=== PATIENT | female | born 1975 | race American Indian/Alaskan Native ===

== ENCOUNTER 2017-03-29 14:36 | Emergency (ER) | payer MEDICAID ==
[2017-03-29 14:42] VITALS: BP 131/79
[2017-03-29] MEDS ORDERED: Ketorolac 30 MG/ML SDV IM ONE (15:02)
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
== END 2017-03-29 15:26 | disposition home or self-care (01) ==
LOC: DL.ED 14:36
DX: M77.9 Enthesopathy, unspecified (principal); F17.210 Nicotine dependence, cigarettes, uncomplicated; Z88.5 Allergy status to narcotic agent; Z79.899 Other long term (current) drug therapy; Z90.49 Acquired absence of other specified parts of digestive tract
CPT/HCPCS: 96372; 99283; J1885

== ENCOUNTER 2020-02-14 09:50 | Emergency (ER) | payer BC ==
[2020-02-14 10:42] VITALS: BP 122/70; PULSE 81
[2020-02-14] MEDS ORDERED: Fluconazole 100 MG Tab PO ONE (11:22)
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
== END 2020-02-14 11:38 | disposition home or self-care (01) ==
LOC: DL.ED 09:50
DX: B37.0 Candidal stomatitis (principal); Z20.828 Contact with and (suspected) exposure to other viral communicable diseases; Z88.5 Allergy status to narcotic agent; Z88.8 Allergy status to other drugs, medicaments and biological substances; Z79.899 Other long term (current) drug therapy
CPT/HCPCS: 87081; 87430; 87635; 87804; 99283; A9270; U0002

== ENCOUNTER 2020-06-18 15:32 | Emergency (ER) | payer BC, MEDICAID ==
[2020-06-18 16:27] VITALS: BP 117/74; PULSE 91
== END 2020-06-18 17:32 | disposition left against medical advice (07) ==
LOC: DL.ED 15:32
DX: Z53.21 Procedure and treatment not carried out due to patient leaving prior to being seen by health care provider (principal)

== ENCOUNTER 2021-03-29 15:36 | Emergency (ER) | payer MEDICAID ==
[2021-03-29 15:57] VITALS: BP 137/87; PULSE 71
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
[2021-03-29 16:33] LABS: CHLORIDE,CL 92 mmol/L (98-107); SODIUM,NA 131 mmol/L (136-145)
[2021-03-29 17:31] LABS: AMPHETAMINES,URINE NEGATIVE (NEGATIVE); BARBITURATES,URINE NEGATIVE (NEGATIVE); BENZODIAZEPINE,URINE NEGATIVE (NEGATIVE); MDMA (ECSTASY), URINE NEGATIVE (NEGATIVE); METHADONE,URINE NEGATIVE (NEGATIVE); METHAMPHETAMINES,URINE NEGATIVE (NEGATIVE); OPIATES,URINE NEGATIVE (NEGATIVE); OXYCODONE,URINE NEGATIVE (NEGATIVE); PHENCYCLIDINE,URINE NEGATIVE (NEGATIVE); TCA,URINE POSITIVE (NEGATIVE)
== END 2021-03-29 17:41 | disposition home or self-care (01) ==
LOC: DL.ED 15:36
DX: F32.9 Major depressive disorder, single episode, unspecified (principal); E87.6 Hypokalemia; E87.1 Hypo-osmolality and hyponatremia; Z88.5 Allergy status to narcotic agent; Z88.8 Allergy status to other drugs, medicaments and biological substances; Z79.899 Other long term (current) drug therapy
CPT/HCPCS: 36415; 80053; 80305-QW; 81001; 83735; 84703; 85025; 99284

== ENCOUNTER 2021-03-31 17:51 | Emergency (ER) | payer MEDICAID ==
[2021-03-31 17:51] VITALS: BP 119/86; PULSE 75
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
--- NOTE | 2021-03-31 18:18 | CT ---
PROCEDURE INFORMATION: Exam: CT Head Without Contrast Exam date and time: 03/31/2021 6:05 PM Age: 46 years old Clinical indication: Altered mental status/memory loss; Confusion or disorientation; Additional info: Altered mentation TECHNIQUE: Imaging protocol: Computed tomography of the head without contrast. Radiation optimization: All CT scans at this facility use at least one of these dose optimization techniques: automated exposure control; mA and/or kV adjustment per patient size (includes targeted exams where dose is matched to clinical indication); or iterative reconstruction. Other technique: STROKE PROTOCOL was implemented. COMPARISON: MR Brain wo Cont 11/23/2020 8:41 AM FINDINGS: Brain: No acute hemorrhage. Unremarkable white matter. No mass effect. 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 Paranasal sinuses: Visualized sinuses are unremarkable. No fluid levels. Mastoid air cells: Visualized mastoid air cells are well aerated. Bones/joints: Unremarkable. No acute fracture. Soft tissues: Unremarkable. IMPRESSION: No acute intracranial process. ASSESSMENT: ASPECTS ([place] Stroke Program Early CT Score) is 10.
[2021-03-31 18:36] LABS: AMPHETAMINES,URINE NEGATIVE (NEGATIVE); BARBITURATES,URINE NEGATIVE (NEGATIVE); BENZODIAZEPINE,URINE NEGATIVE (NEGATIVE); MDMA (ECSTASY), URINE NEGATIVE (NEGATIVE); METHADONE,URINE NEGATIVE (NEGATIVE); METHAMPHETAMINES,URINE NEGATIVE (NEGATIVE); OPIATES,URINE NEGATIVE (NEGATIVE); OXYCODONE,URINE NEGATIVE (NEGATIVE); PHENCYCLIDINE,URINE NEGATIVE (NEGATIVE); TCA,URINE POSITIVE (NEGATIVE)
[2021-03-31 18:40] LABS: CHLORIDE,CL 100 mmol/L (98-107); SODIUM,NA 140 mmol/L (136-145)
[2021-03-31 18:41] LABS: ACETAMINOPHEN 0 ug/mL (10-30 (Therapeutic))
== END 2021-03-31 19:17 | disposition other institution (70) ==
LOC: DL.ED 17:51
DX: R41.82 Altered mental status, unspecified (principal); Z88.5 Allergy status to narcotic agent; Z88.9 Allergy status to unspecified drugs, medicaments and biological substances; Z79.899 Other long term (current) drug therapy
CPT/HCPCS: 36415; 70450; 80053; 80143; 80179; 80305-QW; 80307; 81001; 82140; 82150; 83605; 83690; 83735; 84484; 85025; 87040; 93005; 93010; 99284; 99285-25

== ENCOUNTER 2022-07-11 06:53 | Day surgery (SDC) | payer MEDICAID ==
[~2022-07-11 06:53] MED LIST: Dextrose 5%-0.45% NaCl 1,000 ML IV SCH; Sodium Chloride 0.9% 10 ML Syringe FLUSH PRN; Sodium Chloride 0.9% 10 ML Syringe FLUSH SCH
[2022-07-11] MEDS ORDERED: Propofol 200 MG/20 ML SDV IV ONE (06:54)
[2022-07-11 11:39] VITALS: BP 147/84; PULSE 62
== END 2022-07-11 10:40 | disposition home or self-care (01) ==
LOC: DL.ENDO 06:53
PROVIDERS: ATTEND Internal Medicine Gastroenterology
DX: K62.5 Hemorrhage of anus and rectum (principal); E66.09 Other obesity due to excess calories; J44.9 Chronic obstructive pulmonary disease, unspecified; F41.1 Generalized anxiety disorder; F32.A Depression, unspecified; E03.9 Hypothyroidism, unspecified; G62.9 Polyneuropathy, unspecified; Z98.890 Other specified postprocedural states; Z90.49 Acquired absence of other specified parts of digestive tract; Z68.38 Body mass index [BMI] 38.0-38.9, adult; Z87.891 Personal history of nicotine dependence; Z79.899 Other long term (current) drug therapy; Z88.8 Allergy status to other drugs, medicaments and biological substances; Z88.6 Allergy status to analgesic agent; Z88.5 Allergy status to narcotic agent
CPT/HCPCS: 00812; 45378; J2704; J7042

== ENCOUNTER 2022-08-26 08:23 | Emergency (ER) | payer MEDICAID ==
[2022-08-26 08:36] VITALS: BP 150/94; PULSE 82
[2022-08-26] MEDS ORDERED: Sodium Chloride 0.9% 10 ML Syringe FLUSH PRN (08:43)
[2022-08-26] MEDS ORDERED: Ketorolac 30 MG/ML SDV IVPUSH ONE (08:43)
[2022-08-26] MEDS ORDERED: Iopamidol 612 MG/ML 100 ML Bottle IVPUSH ONE (09:00)
[2022-08-26 09:31] LABS: ANION GAP 9.6 mEq/L (7-13); CHLORIDE,CL 91 mmol/L (98-107); SODIUM,NA 125 mmol/L (136-145)
[2022-08-26 09:34] LABS: ESTIMATED GFR 106 mL/min (>=60)
== END 2022-08-26 10:33 | disposition home or self-care (01) ==
LOC: DL.ED 08:23
DX: K11.20 Sialoadenitis, unspecified (principal); J44.9 Chronic obstructive pulmonary disease, unspecified; E03.9 Hypothyroidism, unspecified; Z88.5 Allergy status to narcotic agent; Z88.8 Allergy status to other drugs, medicaments and biological substances; Z79.899 Other long term (current) drug therapy; Z87.891 Personal history of nicotine dependence
CPT/HCPCS: 36415; 70491; 80053; 85025; 86140; 87040; 96374; 99284; J1885; J3490; Q9967

== ENCOUNTER 2022-12-18 08:55 | Emergency (ER) | payer MEDICAID ==
[2022-12-18] MEDS ORDERED: Sodium Chloride 0.9% 10 ML Syringe FLUSH PRN (09:12)
[2022-12-18 09:22] LABS: BASOPHILS PERCENT AUTO 0.2 % (0.0-1.0); EOSINOPHILS PERCENT AUTO 0.6 % (1.0-3.0); HEMATOCRIT 37.6 % (37.0-47.0); HEMOGLOBIN 13.2 g/dL (12.0-16.0); LYMPHOCYTES PERCENT AUTO 5.3 % (20.5-50.1); MEAN CORPUSCULAR HEMOGLOBIN 30.3 pg (27.0-34.0); MEAN CORPUSCULAR HGB CONC 35.1 g/dL (33.0-35.0); MEAN CORPUSCULAR VOLUME 86.4 fL (80-100); MONOCYTES PERCENT AUTO 11.6 % (2-8); NEUTROPHILS PERCENT AUTO 82.3 % (42.2-75.2); PLATELET COUNT,PLT 204 10^3/uL (150-450); RED BLOOD CELL COUNT 4.35 10^6/uL (4.2-5.4); WHITE BLOOD CELL COUNT,WBC 10.2 10^3/uL (5.0-10.0)
[2022-12-18 09:44] LABS: ALBUMIN 3.2 g/dL (3.4-5.0); BILIRUBIN TOTAL 0.7 mg/dL (0.2-1.0); BUN/CREATININE RATIO 11.8 (No establ ref range); CALCIUM 8.5 mg/dL (8.5-10.1); CREATININE 0.85 mg/dL (0.55-1.02); EST CRCL DRUG DOSING (CG) 77.85 mL/min; PROTEIN TOTAL,TP 7.3 g/dL (6.4-8.2)
[2022-12-18 09:45] LABS: LACTIC ACID 0.7 mmol/L (0.4-2.0)
[2022-12-18 09:49] LABS: ANION GAP 13.6 mEq/L (7-13); POTASSIUM,K 2.6 mmol/L (3.5-5.1)
[2022-12-18] MEDS ORDERED: methylPREDNISolone Sodium Succinate 125 MG/2 ML SDV IVPUSH ONE (09:49)
[2022-12-18] MEDS ORDERED: Sodium Chloride 0.9% 1,000 ML IV ONE (09:49)
[2022-12-18] MEDS ORDERED: Albuterol/Ipratropium 3.0-0.5 MG/3 ML Neb Soln NEB ONE (09:50)
[2022-12-18 09:53] LABS: A/G RATIO 0.78
[2022-12-18 10:03] LABS: CORONAVIRUS COVID-19 NAA NEGATIVE (NEGATIVE); INFLUENZA A NAA NEGATIVE (NEGATIVE); INFLUENZA B NAA NEGATIVE (NEGATIVE); RESPIRATORY SYNCYTIAL VIR NAA NEGATIVE (NEGATIVE)
[2022-12-18] MEDS ORDERED: Ondansetron 4 MG/2 ML SDV IV ONE (10:05)
[2022-12-18] MEDS ORDERED: Potassium Chloride 10 MEQ Tab.ER PO ONE (10:05)
[2022-12-18] MEDS ORDERED: Potassium Chloride 20 MEQ in Premix Bag 1 BAG IV ONE (10:07)
[2022-12-18] MEDS ORDERED: Lidocaine 1% 5 ML VIAL IV ONE (10:08)
[2022-12-18] MEDS ORDERED: Iopamidol 755 Mg/ML 100 ML Bottle IVPUSH ONE (10:09)
[2022-12-18 11:01] LABS: APPEARANCE,URINE SLIGHTLY CLOUDY (CLEAR); BILIRUBIN,URINE NEGATIVE (NEGATIVE); COLOR,URINE YELLOW (YELLOW); GLUCOSE,URINE NEGATIVE (NEGATIVE); KETONES,URINE 15 (NEGATIVE); LEUKOCYTE ESTERASE,URINE SMALL (NEGATIVE); NITRITE,URINE POSITIVE (NEGATIVE); OCCULT BLOOD,URINE MODERATE (NEGATIVE); PROTEIN,URINE TRACE (NEGATIVE); UROBILINOGEN,URINE 0.2 mg/dL (0.2-1.0)
[2022-12-18 11:14] LABS: AMORPHOUS SEDIMENT,URINE MODERATE /HPF (NOT SEEN); BACTERIA,URINE MANY /HPF (0-FEW/HPF); EPITHELIAL CELLS,URINE MANY /HPF (NOT SEEN); HYALINE CASTS,URINE FEW; MUCUS,URINE FEW /LPF (NOT SEEN); WBC,URINE 50-75 /HPF (0-5/HPF)
[2022-12-18 11:15] LABS: GRANULAR CASTS,URINE FEW
[2022-12-18] MEDS ORDERED: cefTRIAXone 2 GM Vial IVPUSH ONE (11:48)
[2022-12-18 13:48] VITALS: BP 128/77; PULSE 84
== END 2022-12-18 13:42 | disposition home or self-care (01) ==
LOC: DL.ED 08:55
DX: J45.40 Moderate persistent asthma, uncomplicated (principal); N12 Tubulo-interstitial nephritis, not specified as acute or chronic; E87.6 Hypokalemia; I10 Essential (primary) hypertension; J44.9 Chronic obstructive pulmonary disease, unspecified; M19.90 Unspecified osteoarthritis, unspecified site; E03.9 Hypothyroidism, unspecified; Z88.8 Allergy status to other drugs, medicaments and biological substances; Z88.6 Allergy status to analgesic agent; Z88.5 Allergy status to narcotic agent; Z79.899 Other long term (current) drug therapy; Z20.822 Contact with and (suspected) exposure to COVID-19
CPT/HCPCS: 0241U; 36415; 71045; 71275; 80053; 81001; 83605; 84484; 85025; 85379; 87040; 87086; 87088; 87186; 93005; 94640; 96365; 96366; 96375; 99285; A9270; J0696; J2405; J2930; J3480; J7030; Q9967; J3490; J7620-GY

== ENCOUNTER 2023-05-29 14:05 | Emergency (ER) | payer SELFPAY ==
[2023-05-29 14:16] VITALS: BP 120/74; PULSE 91
== END 2023-05-29 15:08 | disposition home or self-care (01) ==
LOC: DL.ED 14:05
DX: G89.18 Other acute postprocedural pain (principal); M79.672 Pain in left foot; E03.9 Hypothyroidism, unspecified; I10 Essential (primary) hypertension; J44.9 Chronic obstructive pulmonary disease, unspecified; E66.9 Obesity, unspecified; Z68.41 Body mass index [BMI] 40.0-44.9, adult; Z98.890 Other specified postprocedural states; Z88.6 Allergy status to analgesic agent; Z88.8 Allergy status to other drugs, medicaments and biological substances; Z79.899 Other long term (current) drug therapy
CPT/HCPCS: 99284

== ENCOUNTER 2023-12-13 06:25 | Day surgery (SDC) | payer MEDICAID ==
[~2023-12-13 06:25] MED LIST changes: -Dextrose 5%-0.45% NaCl 1,000 ML IV SCH; +Midazolam 1 MG/ML 2 ML SDV ONE; -Sodium Chloride 0.9% 10 ML Syringe FLUSH PRN; -Sodium Chloride 0.9% 10 ML Syringe FLUSH SCH; +fentaNYL 100 MCG/2 ML SDV ONE
[2023-12-13] MEDS ORDERED: fentaNYL 100 MCG/2 ML SDV IV ONE (06:26)
[2023-12-13] MEDS ORDERED: Midazolam 1 MG/ML 2 ML SDV IV ONE (06:26)
[2023-12-13] MEDS: Dextrose 5%-0.45% NaCl 1,000 ML IV SCH (06:41)
[2023-12-13] MEDS: fentaNYL 100 MCG/2 ML SDV IV ONE ×2 (06:48→06:49)
[2023-12-13] MEDS: Midazolam 1 MG/ML 2 ML SDV IV ONE ×2 (06:49→06:50)
[2023-12-13 08:11] VITALS: PULSE 66
[2023-12-13 08:23] VITALS: BP 103/52
== END 2023-12-13 08:25 | disposition home or self-care (01) ==
LOC: DL.ENDO 06:25
PROVIDERS: ATTEND Internal Medicine Gastroenterology
DX: K31.89 Other diseases of stomach and duodenum (principal); K25.9 Gastric ulcer, unspecified as acute or chronic, without hemorrhage or perforation; J45.909 Unspecified asthma, uncomplicated; J44.9 Chronic obstructive pulmonary disease, unspecified; E03.9 Hypothyroidism, unspecified; F32.A Depression, unspecified; E66.09 Other obesity due to excess calories; Z68.41 Body mass index [BMI] 40.0-44.9, adult; F41.1 Generalized anxiety disorder
CPT/HCPCS: 87077; J2250; J3010; J7042

== ENCOUNTER 2024-01-24 10:18 | Emergency (ER) | payer MEDICAID ==
[2024-01-24 10:57] LABS: BASOPHILS PERCENT AUTO 0.8 % (0.0-1.0); EOSINOPHILS PERCENT AUTO 1.9 % (1.0-3.0); HEMATOCRIT 40.5 % (37.0-47.0); HEMOGLOBIN 14.4 g/dL (12.0-16.0); LYMPHOCYTES PERCENT AUTO 19.7 % (20.5-50.1); MEAN CORPUSCULAR HEMOGLOBIN 31.4 pg (27.0-34.0); MEAN CORPUSCULAR HGB CONC 35.6 g/dL (33.0-35.0); MEAN CORPUSCULAR VOLUME 88.4 fL (80-100); MONOCYTES PERCENT AUTO 7.6 % (2-8); PLATELET COUNT,PLT 293 10^3/uL (150-450); RED BLOOD CELL COUNT 4.58 10^6/uL (4.2-5.4); WHITE BLOOD CELL COUNT,WBC 5.3 10^3/uL (5.0-10.0)
[2024-01-24] MEDS: Aspirin 81 MG Tab.Chew PO ONE (11:04)
[2024-01-24 11:05] LABS: APPEARANCE,URINE CLEAR (CLEAR); BILIRUBIN,URINE NEGATIVE (NEGATIVE); COLOR,URINE YELLOW (YELLOW); GLUCOSE,URINE NEGATIVE (NEGATIVE); KETONES,URINE NEGATIVE (NEGATIVE); LEUKOCYTE ESTERASE,URINE NEGATIVE (NEGATIVE); NITRITE,URINE NEGATIVE (NEGATIVE); OCCULT BLOOD,URINE NEGATIVE (NEGATIVE); PH,URINE 7.5 (5.0-9.0); PROTEIN,URINE TRACE (NEGATIVE); UROBILINOGEN,URINE 0.2 mg/dL (0.2-1.0)
[2024-01-24 11:11] VITALS: BP 127/77; PULSE 70
[2024-01-24 11:14] LABS: PROTHROMBIN TIME 9.9 SEC (9.0-12.0)
[2024-01-24 11:15] LABS: BACTERIA,URINE FEW /HPF (0-FEW/HPF); EPITHELIAL CELLS,URINE MODERATE /HPF (NOT SEEN); RBC,URINE 0-5 /HPF (0-5); WBC,URINE 0-5 /HPF (0-5/HPF)
[2024-01-24 11:21] LABS: A/G RATIO 1.3; ALANINE AMINOTRANSFERASE,ALT 20 U/L (14-59); ALBUMIN 4.2 g/dL (3.4-5.0); ALKALINE PHOSPHATASE 106 U/L (46-116); ANION GAP 12.3 mEq/L (7-13); ASPARTATE AMNIOTRANSFERASE,AST 14 U/L (15-37); BILIRUBIN TOTAL 0.4 mg/dL (0.2-1.0); BLOOD UREA NITROGEN,BUN 11 mg/dL (7-18); BUN/CREATININE RATIO 13.6 (No establ ref range); CALCIUM 9.6 mg/dL (8.5-10.1); CARBON DIOXIDE,CO2 28 mmol/L (21-32); CHLORIDE,CL 93 mmol/L (98-107); CREATININE 0.81 mg/dL (0.55-1.02); GLUCOSE RANDOM 112 mg/dL (70-99); LIPASE 19 U/L (16-77); MAGNESIUM 2.1 mg/dL (1.8-2.4); POTASSIUM,K 4.3 mmol/L (3.5-5.1); PROTEIN TOTAL,TP 7.4 g/dL (6.4-8.2); SODIUM,NA 129 mmol/L (136-145)
[2024-01-24 11:22] LABS: ESTIMATED GFR 88 mL/min (>=60)
[2024-01-24] MEDS: cefTRIAXone 1 GM Vial IVPUSH ONE (11:39)
== END 2024-01-24 13:05 | disposition home or self-care (01) ==
LOC: DL.ED 10:18
DX: R07.89 Other chest pain (principal); N39.0 Urinary tract infection, site not specified; E87.1 Hypo-osmolality and hyponatremia; I10 Essential (primary) hypertension; J44.9 Chronic obstructive pulmonary disease, unspecified; E66.9 Obesity, unspecified; E03.9 Hypothyroidism, unspecified; Z88.8 Allergy status to other drugs, medicaments and biological substances; Z79.890 Hormone replacement therapy; Z79.899 Other long term (current) drug therapy; Z90.49 Acquired absence of other specified parts of digestive tract; Z90.710 Acquired absence of both cervix and uterus
CPT/HCPCS: 36415; 71045; 80053; 81001; 83690; 83735; 84484; 85025; 85379; 85610; 93005; 96374; 99285-25; A9270-GY; J0696

== ENCOUNTER 2024-02-24 15:54 | Observation (INO) | payer MEDICAID ==
[2024-02-24] MEDS: Iopamidol 612 MG/ML 100 ML Bottle IVPUSH ONE (16:24)
[2024-02-24] MEDS: Ketamine 500 mg/10 ML MDV IV ONE (16:45)
[2024-02-24] MEDS: Sodium Chloride 0.9% 1,000 ML IV ONE (17:00)
[2024-02-24] MEDS: fentaNYL 100 MCG/2 ML SDV IVPUSH ONE (19:13)
[2024-02-24] MEDS: HYDROmorphone 1 MG/ML Syringe IVPUSH ONE (19:28)
[2024-02-24] MEDS ORDERED: Albuterol/Ipratropium 3.0-0.5 MG/3 ML Neb Soln NEB PRN (19:46)
[2024-02-24] MEDS ORDERED: Polyethylene Glycol 3350 Powder 17 GM Packet PO PRN (19:46)
[2024-02-24] MEDS ORDERED: Magnesium Hydroxide 400 MG/5 ML Susp 30 ML Cup PO PRN (19:46)
[2024-02-24] MEDS ORDERED: Bisacodyl 5 MG Tab PO PRN (19:46)
[2024-02-24] MEDS ORDERED: Naloxone 2 MG/2 ML Syringe IVPUSH PRN (20:15)
[2024-02-24] MEDS ORDERED: Promethazine 25 MG/ML SDV IM PRN (20:17)
[2024-02-24] MEDS: Docusate Sodium 100 MG Cap PO SCH (21:15)
[2024-02-24] MEDS: Ondansetron 4 MG/2 ML SDV IVPUSH PRN (21:36)
[2024-02-24] MEDS: oxyCODONE 5 MG Tab PO PRN (21:46)
[2024-02-24] MEDS: Temazepam 15 MG Cap PO PRN (21:47)
[2024-02-25] MEDS: Pantoprazole 40 MG Tab.CR PO SCH (06:09)
[2024-02-25 06:44] LABS: BASOPHILS PERCENT AUTO 0.9 % (0.0-1.0); EOSINOPHILS PERCENT AUTO 3.4 % (1.0-3.0); HEMATOCRIT 32.7 % (37.0-47.0); HEMOGLOBIN 10.8 g/dL (12.0-16.0); LYMPHOCYTES PERCENT AUTO 24.4 % (20.5-50.1); MONOCYTES PERCENT AUTO 7.7 % (2-8); NEUTROPHILS PERCENT AUTO 63.6 % (42.2-75.2); PLATELET COUNT,PLT 260 10^3/uL (150-450); RED BLOOD CELL COUNT 3.48 10^6/uL (4.2-5.4); WHITE BLOOD CELL COUNT,WBC 4.7 10^3/uL (5.0-10.0)
[2024-02-25 07:13] LABS: ALBUMIN 3.3 g/dL (3.4-5.0); ANION GAP 7.5 mEq/L (7-13); BILIRUBIN TOTAL 0.3 mg/dL (0.2-1.0); BUN/CREATININE RATIO 27.1 (No establ ref range); CALCIUM 8.5 mg/dL (8.5-10.1); CREATININE 0.7 mg/dL (0.55-1.02); EST CRCL DRUG DOSING (CG) 90.01 mL/min; MAGNESIUM 2.1 mg/dL (1.8-2.4); POTASSIUM,K 4.5 mmol/L (3.5-5.1); PROTEIN TOTAL,TP 6.1 g/dL (6.4-8.2)
[2024-02-25 07:15] LABS: A/G RATIO 1.18
[2024-02-25] MEDS: Ibuprofen 400 MG Tab PO PRN (14:06)
[2024-02-25] MEDS: fentaNYL 100 MCG/2 ML SDV IVPUSH PRN (14:08)
[2024-02-25] MEDS ORDERED: Docusate Sodium 100 MG Cap PO SCH (16:15)
[2024-02-25] MEDS: LORazepam 1 MG Tab PO PRN (16:28)
[2024-02-25] MEDS: Formoterol/Mometasone 100-5 MCG 8.8 GM Inhaler INH SCH (18:21)
[2024-02-25] MEDS: OXcarbazepine 300 MG Tab PO SCH (20:45)
[2024-02-25] MEDS: Magnesium Oxide 400 MG Tab PO SCH (20:45)
[2024-02-25] MEDS: Amitriptyline 25 MG Tab PO SCH (20:45)
[2024-02-25] MEDS: ORPHENADRINE 100 MG PO PRN (22:01)
[2024-02-26 06:38] LABS: BASOPHILS PERCENT AUTO 0.6 % (0.0-1.0); HEMATOCRIT 30.4 % (37.0-47.0); HEMOGLOBIN 10.2 g/dL (12.0-16.0); LYMPHOCYTES PERCENT AUTO 26.1 % (20.5-50.1); MEAN CORPUSCULAR HGB CONC 33.6 g/dL (33.0-35.0); MEAN CORPUSCULAR VOLUME 92.4 fL (80-100); MONOCYTES PERCENT AUTO 7.7 % (2-8); NEUTROPHILS PERCENT AUTO 62.6 % (42.2-75.2); PLATELET COUNT,PLT 247 10^3/uL (150-450); RED BLOOD CELL COUNT 3.29 10^6/uL (4.2-5.4); WHITE BLOOD CELL COUNT,WBC 4.9 10^3/uL (5.0-10.0)
[2024-02-26] MEDS ORDERED: Flumazenil 0.1 MG/ML 5 ML MDV IVPUSH PRN (06:47)
[2024-02-26 07:02] LABS: ALBUMIN 3.3 g/dL (3.4-5.0); ANION GAP 10.1 mEq/L (7-13); BILIRUBIN TOTAL 0.3 mg/dL (0.2-1.0); BUN/CREATININE RATIO 21.5 (No establ ref range); CALCIUM 8.5 mg/dL (8.5-10.1); CREATININE 0.65 mg/dL (0.55-1.02); EST CRCL DRUG DOSING (CG) 96.93 mL/min; MAGNESIUM 2.2 mg/dL (1.8-2.4); POTASSIUM,K 4.1 mmol/L (3.5-5.1); PROTEIN TOTAL,TP 6.1 g/dL (6.4-8.2)
[2024-02-26 07:03] LABS: A/G RATIO 1.18
[2024-02-26] MEDS ORDERED: fentaNYL 100 MCG/2 ML SDV IVPUSH PRN (08:01)
[2024-02-26] MEDS: ESTRADIOL 1 MG PO SCH (08:48)
[2024-02-26] MEDS: Lidocaine 5% 700 MG Patch TOP SCH (08:51)
[2024-02-26] MEDS: fentaNYL 100 MCG/2 ML SDV IVPUSH PRN (08:51)
[2024-02-26] MEDS: Hydrochlorothiazide 25 MG Tab PO SCH (08:52)
[2024-02-26] MEDS: Loratadine 10 MG Tab PO SCH (08:52)
[2024-02-26] MEDS: Venlafaxine 150 MG Cap.ER PO SCH (08:53)
[2024-02-26] MEDS: Levothyroxine 75 MCG Tab PO SCH (08:53)
[2024-02-27 06:53] LABS: BASOPHILS PERCENT AUTO 0.5 % (0.0-1.0); EOSINOPHILS PERCENT AUTO 3.7 % (1.0-3.0); HEMATOCRIT 29.5 % (37.0-47.0); MEAN CORPUSCULAR HGB CONC 33.9 g/dL (33.0-35.0); MEAN CORPUSCULAR VOLUME 91.3 fL (80-100); MONOCYTES PERCENT AUTO 8.3 % (2-8); NEUTROPHILS PERCENT AUTO 62.5 % (42.2-75.2); PLATELET COUNT,PLT 234 10^3/uL (150-450); RED BLOOD CELL COUNT 3.23 10^6/uL (4.2-5.4); WHITE BLOOD CELL COUNT,WBC 4.4 10^3/uL (5.0-10.0)
[2024-02-27 07:14] LABS: ALBUMIN 3.2 g/dL (3.4-5.0); ANION GAP 10.8 mEq/L (7-13); BILIRUBIN TOTAL 0.4 mg/dL (0.2-1.0); BUN/CREATININE RATIO 21.7 (No establ ref range); CALCIUM 8.3 mg/dL (8.5-10.1); CREATININE 0.6 mg/dL (0.55-1.02); EST CRCL DRUG DOSING (CG) 105.01 mL/min; MAGNESIUM 2.2 mg/dL (1.8-2.4); POTASSIUM,K 3.8 mmol/L (3.5-5.1); PROTEIN TOTAL,TP 6.1 g/dL (6.4-8.2)
[2024-02-27 07:15] LABS: A/G RATIO 1.1
[2024-02-27] MEDS: diphenhydrAMINE 50 MG/ML SDV IVPUSH PRN (12:15)
[2024-02-27 14:08] VITALS: BP 115/62; PULSE 83
== END 2024-02-27 14:53 | disposition home or self-care (01) ==
LOC: DL.ED 15:54 → DL.MS 19:09
PROVIDERS: ADMIT Internal Medicine; ATTEND Internal Medicine
DX: S76.091A Other specified injury of muscle, fascia and tendon of right hip, initial encounter (principal); S70.01XA Contusion of right hip, initial encounter; G89.29 Other chronic pain; M16.11 Unilateral primary osteoarthritis, right hip; E66.9 Obesity, unspecified; T79.6XXA Traumatic ischemia of muscle, initial encounter; G61.81 Chronic inflammatory demyelinating polyneuritis; I10 Essential (primary) hypertension; J44.9 Chronic obstructive pulmonary disease, unspecified; E03.9 Hypothyroidism, unspecified; Z79.890 Hormone replacement therapy; Z79.899 Other long term (current) drug therapy; Z68.41 Body mass index [BMI] 40.0-44.9, adult; W19.XXXA Unspecified fall, initial encounter
CPT/HCPCS: 36415; 51702; 73701; 73718-RT; 80053; 82306; 82550; 83735; 85025; 94640; 96374; 96375; 97166-GO; 97530-GO; 99232; 99233; 99238; 99284; 99284-25; A9270-GY; J1170; J1200; J2405; J3010; J3360; J3490; J7030; Q9967

== ENCOUNTER 2024-04-25 18:52 | Emergency (ER) | payer MEDICAID ==
[2024-04-25 19:08] VITALS: BP 148/100; PULSE 90
[2024-04-25 20:45] LABS: BASOPHILS PERCENT AUTO 0.4 % (0.0-1.0); EOSINOPHILS PERCENT AUTO 0.4 % (1.0-3.0); HEMATOCRIT 38.3 % (37.0-47.0); HEMOGLOBIN 13.4 g/dL (12.0-16.0); LYMPHOCYTES PERCENT AUTO 15.1 % (20.5-50.1); MEAN CORPUSCULAR HEMOGLOBIN 31.1 pg (27.0-34.0); MEAN CORPUSCULAR VOLUME 88.9 fL (80-100); MONOCYTES PERCENT AUTO 6.3 % (2-8); NEUTROPHILS PERCENT AUTO 77.8 % (42.2-75.2); PLATELET COUNT,PLT 295 10^3/uL (150-450); RED BLOOD CELL COUNT 4.31 10^6/uL (4.2-5.4); WHITE BLOOD CELL COUNT,WBC 10.6 10^3/uL (5.0-10.0)
[2024-04-25 21:00] LABS: APPEARANCE,URINE SLIGHTLY CLOUDY (CLEAR); BILIRUBIN,URINE NEGATIVE (NEGATIVE); COLOR,URINE YELLOW (YELLOW); GLUCOSE,URINE NEGATIVE (NEGATIVE); KETONES,URINE TRACE (NEGATIVE); LEUKOCYTE ESTERASE,URINE TRACE (NEGATIVE); NITRITE,URINE NEGATIVE (NEGATIVE); OCCULT BLOOD,URINE TRACE-INTACT (NEGATIVE); PROTEIN,URINE NEGATIVE (NEGATIVE); UROBILINOGEN,URINE 0.2 mg/dL (0.2-1.0)
[2024-04-25 21:04] LABS: AMPHETAMINES,URINE NEGATIVE (NEGATIVE); BARBITURATES,URINE NEGATIVE (NEGATIVE); BENZODIAZEPINE,URINE POSITIVE (NEGATIVE); MDMA (ECSTASY), URINE NEGATIVE (NEGATIVE); METHADONE,URINE NEGATIVE (NEGATIVE); METHAMPHETAMINES,URINE NEGATIVE (NEGATIVE); OPIATES,URINE NEGATIVE (NEGATIVE); OXYCODONE,URINE NEGATIVE (NEGATIVE); PHENCYCLIDINE,URINE NEGATIVE (NEGATIVE); TCA,URINE POSITIVE (NEGATIVE)
[2024-04-25 21:18] LABS: A/G RATIO 1.6; ALANINE AMINOTRANSFERASE,ALT 27 U/L (14-59); ALBUMIN 4.7 g/dL (3.4-5.0); ALKALINE PHOSPHATASE 102 U/L (46-116); ANION GAP 13.2 mEq/L (7-13); ASPARTATE AMNIOTRANSFERASE,AST 15 U/L (15-37); BILIRUBIN TOTAL 0.4 mg/dL (0.2-1.0); BLOOD UREA NITROGEN,BUN 17 mg/dL (7-18); BUN/CREATININE RATIO 24.3 (No establ ref range); CALCIUM 9.3 mg/dL (8.5-10.1); CARBON DIOXIDE,CO2 28 mmol/L (21-32); CHLORIDE,CL 93 mmol/L (98-107); EST CRCL DRUG DOSING (CG) 95.91 mL/min; GLUCOSE RANDOM 107 mg/dL (70-99); MAGNESIUM 1.9 mg/dL (1.8-2.4); POTASSIUM,K 3.2 mmol/L (3.5-5.1); PROTEIN TOTAL,TP 7.6 g/dL (6.4-8.2); SODIUM,NA 131 mmol/L (136-145); TSH ULTRASENSITIVE 4.56 uIU/mL (0.36-3.74)
[2024-04-25 21:20] LABS: C-REACTIVE PROTEIN < 0.50 ng/dL (<=0.50); ESTIMATED GFR 105 mL/min (>=60)
[2024-04-25 21:25] LABS: BACTERIA,URINE MODERATE /HPF (0-FEW/HPF); EPITHELIAL CELLS,URINE MODERATE /HPF (NOT SEEN); WBC,URINE 0-5 /HPF (0-5/HPF)
== END 2024-04-26 01:06 ==
LOC: DL.ED 18:52
DX: R41.3 Other amnesia (principal); I10 Essential (primary) hypertension; J44.9 Chronic obstructive pulmonary disease, unspecified; E03.9 Hypothyroidism, unspecified; E66.9 Obesity, unspecified; Z68.39 Body mass index [BMI] 39.0-39.9, adult; Z90.49 Acquired absence of other specified parts of digestive tract; Z90.710 Acquired absence of both cervix and uterus; Z79.899 Other long term (current) drug therapy; Z88.6 Allergy status to analgesic agent; Z88.8 Allergy status to other drugs, medicaments and biological substances; Z88.5 Allergy status to narcotic agent
CPT/HCPCS: 36415; 80053; 80305-QW; 81001; 82947; 83735; 84439; 84443; 84484; 85025; 85651; 86140; 87086; 87088; 87804; 93005; 93010; 99285; U0002

== ENCOUNTER 2024-07-22 10:41 | Emergency (ER) | payer MEDICAID ==
[2024-07-22 11:06] LABS: BASOPHILS PERCENT AUTO 0.8 % (0.0-1.0); EOSINOPHILS PERCENT AUTO 4.5 % (1.0-3.0); HEMATOCRIT 34.7 % (37.0-47.0); HEMOGLOBIN 11.3 g/dL (12.0-16.0); LYMPHOCYTES PERCENT AUTO 21.3 % (20.5-50.1); MEAN CORPUSCULAR HEMOGLOBIN 30.5 pg (27.0-34.0); MEAN CORPUSCULAR HGB CONC 32.6 g/dL (33.0-35.0); MEAN CORPUSCULAR VOLUME 93.5 fL (80-100); MONOCYTES PERCENT AUTO 6.1 % (2-8); NEUTROPHILS PERCENT AUTO 67.3 % (42.2-75.2); PLATELET COUNT,PLT 278 10^3/uL (150-450); RED BLOOD CELL COUNT 3.71 10^6/uL (4.2-5.4); WHITE BLOOD CELL COUNT,WBC 5.1 10^3/uL (5.0-10.0)
[2024-07-22 11:26] LABS: B-TYPE NATRIURETIC PEPTIDE,BNP 422 pg/ml (0-100)
[2024-07-22 11:28] LABS: A/G RATIO 1.3; ALANINE AMINOTRANSFERASE,ALT 23 U/L (14-59); ALBUMIN 3.7 g/dL (3.4-5.0); ALKALINE PHOSPHATASE 90 U/L (46-116); ANION GAP 11.6 mEq/L (7-13); ASPARTATE AMNIOTRANSFERASE,AST 16 U/L (15-37); BILIRUBIN TOTAL 0.3 mg/dL (0.2-1.0); BLOOD UREA NITROGEN,BUN 13 mg/dL (7-18); BUN/CREATININE RATIO 17.6 (No establ ref range); CALCIUM 8.8 mg/dL (8.5-10.1); CARBON DIOXIDE,CO2 29 mmol/L (21-32); CHLORIDE,CL 96 mmol/L (98-107); CREATININE 0.74 mg/dL (0.55-1.02); ESTIMATED GFR 98 mL/min (>=60); GLUCOSE RANDOM 106 mg/dL (70-99); POTASSIUM,K 4.6 mmol/L (3.5-5.1); PROTEIN TOTAL,TP 6.6 g/dL (6.4-8.2); SODIUM,NA 132 mmol/L (136-145)
[2024-07-22] MEDS: Iopamidol 755 Mg/ML 100 ML Bottle IVPUSH ONE (12:02)
[2024-07-22] MEDS: Furosemide 40 MG/4 ML VIAL IVPUSH ONE (13:10)
[2024-07-22 13:57] VITALS: BP 127/73; PULSE 56
== END 2024-07-22 14:02 | disposition home or self-care (01) ==
LOC: DL.ED 10:41
DX: E87.79 Other fluid overload (principal); I10 Essential (primary) hypertension; J44.89 Other specified chronic obstructive pulmonary disease; E03.9 Hypothyroidism, unspecified; E66.9 Obesity, unspecified; Z90.49 Acquired absence of other specified parts of digestive tract; Z90.710 Acquired absence of both cervix and uterus; Z88.6 Allergy status to analgesic agent; Z88.8 Allergy status to other drugs, medicaments and biological substances; Z79.51 Long term (current) use of inhaled steroids; Z79.890 Hormone replacement therapy; Z79.899 Other long term (current) drug therapy; Z68.41 Body mass index [BMI] 40.0-44.9, adult
CPT/HCPCS: 71275; 80053; 83880; 84484; 85025; 85610; 87428-QW; 93005; 93010; 96374; 99284; 99285-25; J1940; Q9967

== ENCOUNTER 2024-07-29 12:02 | Emergency (ER) | payer MEDICAID ==
[2024-07-29] MEDS ORDERED: Sodium Chloride 0.9% 10 ML Syringe FLUSH PRN (12:34)
[2024-07-29 12:43] LABS: BASOPHILS PERCENT AUTO 0.7 % (0.0-1.0); EOSINOPHILS PERCENT AUTO 1.5 % (1.0-3.0); HEMATOCRIT 37.4 % (37.0-47.0); HEMOGLOBIN 12.7 g/dL (12.0-16.0); LYMPHOCYTES PERCENT AUTO 18.7 % (20.5-50.1); MEAN CORPUSCULAR HEMOGLOBIN 30.4 pg (27.0-34.0); MEAN CORPUSCULAR VOLUME 89.5 fL (80-100); MONOCYTES PERCENT AUTO 5.4 % (2-8); NEUTROPHILS PERCENT AUTO 73.7 % (42.2-75.2); PLATELET COUNT,PLT 289 10^3/uL (150-450); RED BLOOD CELL COUNT 4.18 10^6/uL (4.2-5.4); WHITE BLOOD CELL COUNT,WBC 5.4 10^3/uL (5.0-10.0)
[2024-07-29] MEDS: Aspirin 81 MG Tab.Chew PO ONE (12:45)
[2024-07-29 12:53] LABS: PROTHROMBIN TIME 10.5 SEC (9.0-12.0); PTT,PARTIAL THROMBOPLSTIN TIME 26.3 SEC (22.0-34.0)
[2024-07-29 12:55] LABS: A/G RATIO 1.3; ALANINE AMINOTRANSFERASE,ALT 14 U/L (14-59); ALBUMIN 4.1 g/dL (3.4-5.0); ALKALINE PHOSPHATASE 98 U/L (46-116); ANION GAP 15.1 mEq/L (7-13); ASPARTATE AMNIOTRANSFERASE,AST 12 U/L (15-37); BILIRUBIN TOTAL 0.4 mg/dL (0.2-1.0); BLOOD UREA NITROGEN,BUN 9 mg/dL (7-18); CARBON DIOXIDE,CO2 25 mmol/L (21-32); CHLORIDE,CL 96 mmol/L (98-107); CREATININE 0.69 mg/dL (0.55-1.02); EST CRCL DRUG DOSING (CG) 83.29 mL/min; GLUCOSE RANDOM 106 mg/dL (70-99); LIPASE 20 U/L (16-77); MAGNESIUM 1.8 mg/dL (1.8-2.4); POTASSIUM,K 4.1 mmol/L (3.5-5.1); PROTEIN TOTAL,TP 7.2 g/dL (6.4-8.2); SODIUM,NA 132 mmol/L (136-145)
[2024-07-29 12:56] LABS: HCG QUALITATIVE,SERUM NEGATIVE (NEGATIVE)
[2024-07-29 12:57] LABS: ESTIMATED GFR 105 mL/min (>=60)
[2024-07-29 13:00] LABS: APPEARANCE,URINE CLEAR (CLEAR); BILIRUBIN,URINE NEGATIVE (NEGATIVE); COLOR,URINE YELLOW (YELLOW); GLUCOSE,URINE NEGATIVE (NEGATIVE); KETONES,URINE 15 (NEGATIVE); LEUKOCYTE ESTERASE,URINE NEGATIVE (NEGATIVE); NITRITE,URINE NEGATIVE (NEGATIVE); OCCULT BLOOD,URINE TRACE-INTACT (NEGATIVE); PROTEIN,URINE NEGATIVE (NEGATIVE); UROBILINOGEN,URINE 0.2 mg/dL (0.2-1.0)
[2024-07-29 13:02] LABS: B-TYPE NATRIURETIC PEPTIDE,BNP 397 pg/ml (0-100)
[2024-07-29 13:08] LABS: D-DIMER QUANTITATIVE < 100 ng/mL (0-400)
[2024-07-29 13:24] LABS: WBC,URINE NOT SEEN /HPF (0-5/HPF)
[2024-07-29 13:25] LABS: BACTERIA,URINE FEW /HPF (0-FEW/HPF); EPITHELIAL CELLS,URINE FEW /HPF (NOT SEEN); MUCUS,URINE RARE /LPF (NOT SEEN); RBC,URINE 0-5 /HPF (0-5)
[2024-07-29] MEDS: Nitroglycerin 2% Oint 1 GM UD Packet TOP ONE (14:05)
[2024-07-29] MEDS: GI Cocktail Oral Solution 30 ML PO ONE (15:29)
[2024-07-29 16:11] VITALS: BP 133/75
[2024-07-29 16:42] VITALS: PULSE 58
== END 2024-07-29 16:28 ==
LOC: DL.ED 12:02
DX: R07.89 Other chest pain (principal); I10 Essential (primary) hypertension; J44.89 Other specified chronic obstructive pulmonary disease; E03.9 Hypothyroidism, unspecified; E66.9 Obesity, unspecified; Z90.49 Acquired absence of other specified parts of digestive tract; Z90.710 Acquired absence of both cervix and uterus; Z87.891 Personal history of nicotine dependence; Z88.6 Allergy status to analgesic agent; Z88.8 Allergy status to other drugs, medicaments and biological substances; Z79.51 Long term (current) use of inhaled steroids; Z79.890 Hormone replacement therapy; Z79.899 Other long term (current) drug therapy; Z68.41 Body mass index [BMI] 40.0-44.9, adult
CPT/HCPCS: 36415; 80053; 81001; 83690; 83735; 83880; 84484; 84703; 85025; 85379; 85610; 85730; 86140; 93005; 99285; A9270-GY